=== PATIENT | female | born 1995 | race Caucasian/White ===

== ENCOUNTER → 2019-10-01 | Outpatient (CLI) | payer OTHER ==
[~2019-10-01] MED LIST: ACET325T9 PO; FAMO40TA4 PO; IBUP-1027 PO; OXYC1TAB15 PO
== END | disposition home or self-care (01) ==
LOC: LAB 13:56
PROVIDERS: ATTEND Surgery
DX: Z01.818 Encounter for other preprocedural examination (principal); Z11.59 Encounter for screening for other viral diseases; K80.20 Calculus of gallbladder without cholecystitis without obstruction
CPT/HCPCS: C9803; U0003

== ENCOUNTER 2019-10-03 08:10 | Day surgery (SDC) | payer OTHER ==
[~2019-10-03] VITALS: Ht 170.2 cm; Wt 74.0 kg
[~2019-10-03 08:10] MED LIST changes: -ACET325T9 PO; +ACETAMINOPHEN 500 MG TABLET PO ONE; -FAMO40TA4 PO; +HYDROmorphone 2 MG/ML VIAL IV PRN; -IBUP-1027 PO; +IV RINGERS,LACTATED 1000ML 1,000 ML IV SCH; +LIDOCAINE 1% PF 2 ML VIAL. ID PRN; +LIDOCAINE 2% PF 5 ML VIAL. ONE; +MORPHINE SULFATE 2 MG/ML VIAL. IV PRN; +ONDANSETRON PF 4 MG/2 ML VIAL. IV PRN; -OXYC1TAB15 PO; +PROCHLORPERAZINE 10 MG/2 ML VIAL. IV PRN; +PROPOFOL 10 MG/ML (20ML) VIAL. IV ONE; +ROCURONIUM 50 MG/5 ML VIAL. ONE; +ceFAZolin SODIUM IV Push 1 GM VIAL. IVP PRN; +fentaNYL PF VIAL 100 MCG/2 ML VIAL IV PRN; +fentaNYL PF VIAL 100 MCG/2 ML VIAL ONE
[2019-10-03] MEDS ORDERED: SURGICEL HEMOSTAT 4X8 EACH. ONE (08:19)
[2019-10-03] MEDS ORDERED: IOHEXOL 300 MG/ML 50 ML VIAL. ONE (08:19)
[2019-10-03] MEDS ORDERED: BUPIVACAINE-EPI 0.25%-1:200000 MPF 30 ML VIAL. ONE (08:19)
[2019-10-03] MEDS ORDERED: FAMO40TA4 PO (08:40)
[2019-10-03] MEDS ORDERED: IBUP-1027 PO (08:41)
[2019-10-03] MEDS ORDERED: ACET325T9 PO (08:41)
[2019-10-03] MEDS ORDERED: DEXAMETHASONE SOD PHOS 4 MG/ML VIAL ONE (09:44)
[2019-10-03] MEDS ORDERED: DESFLURANE 31 TO 60 MINUTES IH ONE (09:44)
[2019-10-03] MEDS ORDERED: GLYCOPYRROLATE 1 MG/5 ML VIAL. ONE (09:44)
[2019-10-03] MEDS ORDERED: NEOSTIGMINE METHYLSULFATE 5 MG/5 ML SYRINGE. ONE (09:44)
[2019-10-03] MEDS ORDERED: ONDANSETRON PF 4 MG/2 ML VIAL. ONE (09:44)
--- NOTE | 2019-10-03 09:49 | PDOC4 ---
Operative Note Operative Note Date: 10/03/2019 at 9:46 AM Preoperative diagnosis: Symptomatic cholelithiasis Postoperative diagnosis: Same Procedure: Laparoscopic cholecystectomy Surgeon: Morris Specimen: Gallbladder Dictation: Patient is a 23-year-old female whose had right upper quadrant abdominal pain for several months ultrasound showing gallstones. Procedure of laparoscopic cholecystectomy was explained to the patient detail risk-benefit were also discussed including bleeding infection injury to intra-abdominal contents possibly necessitating further or open operations alternatives to this procedure also discussed with the patient who seemed to understand and gave both verbal and written consent to have the procedure performed. Patient was taken to the operating room placed in supine position general anesthesia was initiated once patient was sleeping intubated her abdomen was prepped and draped usual sterile fashion using ChloraPrep. An area just below the umbilicus was injected with quarter percent Marcaine with epinephrine incision was made with 11 blade scalpel and a varies needle was placed within the abdomen creating pneumoperitoneum once this was complete 11 mm port was placed and a 5 mm camera was placed within the abdomen, the abdomen was inspected no other red maladies were noted. 5 mm port was placed in the epigastrium a 5 mm port was placed in the right midabdomen and a 5 mm port was placed in the right lateral abdomen all under direct visualization. The dome of the gallbladder is grasped retracted cephalad the infundibulum of the gallbladder is grasped retracted laterally exposing the triangle the adherent tissues of the triangle were taken down with blunt dissection exposing the cystic duct and cystic artery both were doubly clipped and transected the gallbladder was taken off the liver with hook electrocautery placed in Endo Catch bag and removed and the umbilicus the right upper quadrant was irrigated and suctioned dry hemostasis deemed to be appropriate and the pneumoperitoneum was reduced all ports were removed the fascial defect at the umbilicus was closed with a [id number] 0 Vicryl suture and skin was reapproximated all port sites for subcuticular Monocryl Mastisol Steri-Strips and island dressings were applied. Patient was awakened and extubated in the operating room taken to recovery in stable condition all sponge instrument needle counts listed as correct estimated blood loss 5 mL. JANET MARTINEZ MD Oct 03, 2019 09:49
--- NOTE | 2019-10-03 09:51 | DISCH ---
DISCHARGE INSTRUCTIONS Condition on Discharge Condition on Discharge: Stable Activity After Discharge Activity Instructions for Disc: Avoid exertion Other activity instructions: No lifting more than 20 pounds for 2 weeks Diet after Discharge Diet after Discharge: Low Fat Wound Incision Care Other wound/incision instructi: May shower in 24 hours Contacting the after DC Call your doctor for: If your condition worsens Follow-Up Follow up with: Dr. Martinez in 2 weeks JANET MARTINEZ MD Oct 03, 2019 09:51
[2019-10-03] MEDS ORDERED: OXYC1TAB15 PO (09:57)
[2019-10-03] MEDS ORDERED: fentaNYL PF VIAL 100 MCG/2 ML VIAL ONE (10:06)
[2019-10-03] MEDS ORDERED: PROCHLORPERAZINE 10 MG/2 ML VIAL. ONE (10:06)
[2019-10-03] MEDS ORDERED: oxyCODONE/APAP 5/325 1 TAB TABLET PO ONE ×2 (10:15)
[2019-10-03 10:45] VITALS: BP 128/71
--- NOTE | 2019-10-06 18:06 | PATHOLOGY ---
[facility] Accession Number: [id number] . 01 Material submitted: . gallbladder - GALLBLADDER AND CONTENTS . 01 Clinical history: . Cholelithiasis . 02 Diagnosis: Gallbladder, cholecystectomy: - Cholelithiasis. - Chronic cholecystitis. - Reactive changes of gallbladder neck lymph node. ([facility] 10/06/2019) [facility] 10/06/2019 1610 Local . 02 Comment: There is no evidence of malignancy. ([facility] 10/06/2019) . 02 Electronically signed: . Ruben Romo MD, Pathologist NPI- [id number] . 01 Gross description: . The specimen is received in formalin labeled "Towell, Tonya, gallbladder and contents" and consists of an intact pink-morgan smooth shiny gallbladder measuring 9.5 x 2.2 x 2.0 cm. The margin is inked black. Opening reveals a lumen filled with translucent to opaque white tenacious material and multiple green calculi measuring between 0.2 x 0.4 cm. The mucosa is pink-palacio with an average wall thickness of 0.1 cm. No masses are identified. Adjacent the gallbladder neck is a 1.3 cm lymph node candidate. Neurological Surgeon sections are submitted in A1-A2. (SDY; 10/03/2019) SYU/SYU 10/03/2019 1559 Local . 02 Pathologist provided ICD-10: K80.10 . 02 CPT . 293701 Specimen Comment: A courtesy copy of this report has been sent to [phone] Specimen Comment: Report sent to Performed at: [address], [place], [place] [id number] MD Sebastian Cannon MD Phone: [phone] Performed at: 02 [facility] [address] [place] [id number] MD Ruben Romo MD Phone: [phone]
== END 2019-10-03 11:18 | disposition home or self-care (01) ==
LOC: SURG 08:10 → EDUNIT# 10:00 → SURG 11:18
PROVIDERS: ATTEND Surgery
DX: K80.10 Calculus of gallbladder with chronic cholecystitis without obstruction (principal); Z87.891 Personal history of nicotine dependence
CPT/HCPCS: 47562; 81025; 88304; A7015; J0690; J0780; J1100; J2405; J2704; J2710; J3010; J3490; J7030; Q9967